=== PATIENT | female | born 1940 ===

== ENCOUNTER 2022-02-17 09:33 | Emergency (ER) | payer MEDICARE ==
[2022-02-17 10:23] VITALS: BP 195/94
== END 2022-02-17 12:00 | disposition left against medical advice (07) ==
LOC: ED 09:33
DX: S89.92XA Unspecified injury of left lower leg, initial encounter (principal); Z53.21 Procedure and treatment not carried out due to patient leaving prior to being seen by health care provider; X58.XXXA Exposure to other specified factors, initial encounter; Y93.89 Activity, other specified; Y92.89 Other specified places as the place of occurrence of the external cause; Y99.8 Other external cause status